=== PATIENT | male | born 1945 | race Caucasian/White ===

== ENCOUNTER 2018-10-27 18:38 | Inpatient (IN) | payer MEDICARE, MEDICAID ==
[2018-10-27] MEDS ORDERED: ACETAMINOPHEN 325 MG TAB PO ×2 (19:00→22:08)
[2018-10-27] MEDS ORDERED: LACTULOSE 30ML CUP PO (19:00)
[2018-10-27] MEDS ORDERED: PENDING SANTYL ORDER FOR WOUND CARE XX (19:00)
[2018-10-27] MEDS ORDERED: BISACODYL 10 MG SUPP PR (19:00)
[2018-10-27] MEDS ORDERED: DOCUSATE SODIUM 100 MG CAP PO (21:00)
[2018-10-27] MEDS ORDERED: HYDROCODONE/APAP (5/325) TAB PO (22:08)
[2018-10-27] MEDS ORDERED: NALOXONE (0.4 MG/ML) INJ IV (22:08)
[2018-10-27] MEDS ORDERED: NACL 0.9% 3 ML SYG IV (22:08)
[2018-10-27] MEDS ORDERED: ONDANSETRON 4 MG INJ IV (22:08)
[2018-10-27] MEDS ORDERED: morphine 4 MG/ML VIAL IV (22:08)
[2018-10-27] MEDS: MAGNESIUM HYDROXIDE 30ML CUP PO (22:42)
[2018-10-27] MEDS: morphine SULFATE/PF (2 MG/2 ML) SYG IV (22:43)
[2018-10-27] MEDS: SENNA TAB PO (22:43)
[2018-10-28 01:05] LABS: ADD UMIC NO; UR ASCORBIC ACID NEGATIVE (NEGATIVE); UR BILIRUBIN (Dip) NEGATIVE (NEGATIVE); UR BLOOD (Dip) NEGATIVE (NEGATIVE); UR CLARITY CLEAR (CLEAR); UR COLOR YELLOW (YELLOW); UR GLUCOSE (Dip) NEGATIVE (NEGATIVE); UR KETONES (Dip) NEGATIVE (NEGATIVE); UR LEUKOCYTE ESTERASE (Dip) NEGATIVE Leu/ul (NEGATIVE); UR NITRITE (Dip) NEGATIVE (NEGATIVE); UR SPECIFIC GRAVITY (Dip) 1.011 (1.003-1.030); UR TOTAL PROTEIN (Dip) NEGATIVE (NEGATIVE); UR UROBILINOGEN (Dip) 1+ mg/dL (NEGATIVE)
[2018-10-28] MEDS: PANTOPRAZOLE (EC) 40 MG TAB PO (06:32)
[2018-10-28 07:39] LABS: ADD MAN DIFF? NO
[2018-10-28 07:45] LABS: BASOPHILS % 0.4 % (0.0-2.0); EOSINOPHILS # 0.2 10^3/ul (0.0-0.5); EOSINOPHILS % 4.9 % (0.0-7.0); HEMATOCRIT 25.4 % (42.0-52.0); HEMOGLOBIN 8.2 g/dl (14.0-18.0); LYMPHOCYTES % 19.8 % (15.0-51.0); MEAN CORPUSCULAR HEMOGLOBIN 33.7 pg (29.0-33.0); MEAN CORPUSCULAR HGB CONC 32.3 g/dl (32.0-37.0); MEAN CORPUSCULAR VOLUME 104.5 fl (82.0-101.0); MEAN PLATELET VOLUME 9.4 fl (7.4-10.4); MONOCYTE # 0.7 10^3/ul (0.3-0.9); MONOCYTES % 13.2 % (0.0-11.0); NEUTROPHIL # 2.9 10^3/ul (1.6-7.5); NEUTROPHILS % 59.3 % (39.0-77.0); PLATELET COUNT 279 10^3/UL (140-415); RED BLOOD COUNT 2.43 10^6/ul (4.70-6.10); RED CELL DISTRIBUTION WIDTH 13.3 % (11.5-14.5)
[2018-10-28 07:45] LABS: WHITE BLOOD COUNT 4.9 10^3/ul (4.8-10.8)
[2018-10-28] MEDS: morphine SULFATE/PF (2 MG/2 ML) SYG IV ×4 (08:05→22:55)
[2018-10-28] MEDS: AMIODARONE 200 MG TAB PO (08:05)
[2018-10-28] MEDS: DOCUSATE SODIUM 100 MG CAP PO ×2 (08:06→21:12)
[2018-10-28] MEDS: METOPROLOL (XL) 25 MG TAB PO ×2 (08:06→21:12)
[2018-10-28] MEDS: ENOXAPARIN 40 MG/0.4 ML SYG SC (08:07)
[2018-10-28 08:11] LABS: ALANINE AMINOTRANSFERASE 13 IU/L (13-69); ALBUMIN 3.1 g/dl (3.3-4.9); ALBUMIN/GLOBULIN RATIO 1.03; ALKALINE PHOSPHATASE 103 IU/L (42-121); ANION GAP 7 (5-13); ASPARTATE AMINO TRANSFERASE 30 IU/L (15-46); BILIRUBIN,INDIRECT 0.2 mg/dl (0-1.1); BILIRUBIN,TOTAL 0.2 mg/dl (0.2-1.3); BLOOD UREA NITROGEN 20 mg/dl (7-20); CALCIUM 9.6 mg/dl (8.4-10.2); CARBON DIOXIDE 29 mmol/L (21-31); CHLORIDE 103 mmol/L (97-110); CREATININE 1.18 mg/dl (0.61-1.24); GLUCOSE 103 mg/dl (70-220); SODIUM 139 mmol/L (135-144); TOTAL PROTEIN 6.1 g/dl (6.1-8.1)
[2018-10-28 08:14] LABS: POTASSIUM 4.1 mmol/L (3.5-5.1)
[2018-10-28] MEDS: BISACODYL (EC) 5 MG TAB PO (09:25)
[2018-10-28] MEDS: WARFARIN 5 MG TAB PO (17:14)
[2018-10-28] MEDS: CIPROFLOXACIN 500 MG TAB PO (17:14)
[2018-10-28] MEDS: ASCORBIC ACID 500 MG TAB PO (17:14)
[2018-10-28] MEDS: SENNA TAB PO (21:00)
[2018-10-28] MEDS ORDERED: CIPROFLOXACIN 500 MG TAB PO (22:12)
[2018-10-29] MEDS: CIPROFLOXACIN 500 MG TAB PO ×2 (06:11→17:47)
[2018-10-29] MEDS: PANTOPRAZOLE (EC) 40 MG TAB PO (06:11)
[2018-10-29] MEDS: morphine SULFATE/PF (2 MG/2 ML) SYG IV ×4 (07:03→21:08)
[2018-10-29 07:14] LABS: INR 1.01; PROTIME 13.4 Sec (11.9-14.9)
[2018-10-29] MEDS: MULTIVITAMINS/MINERALS TAB PO (10:21)
[2018-10-29] MEDS: FOLIC ACID 1 MG TAB PO (10:22)
[2018-10-29] MEDS: ZINC SULFATE 220 MG CAP PO (10:22)
[2018-10-29] MEDS: DOCUSATE SODIUM 100 MG CAP PO ×2 (10:22→21:07)
[2018-10-29] MEDS: AMIODARONE 200 MG TAB PO (10:22)
[2018-10-29] MEDS: METOPROLOL (XL) 25 MG TAB PO ×2 (10:23→21:00)
[2018-10-29] MEDS: OXYCODONE/ACETAMINOPHEN (10/325) TAB PO (12:42)
[2018-10-29] MEDS: ENOXAPARIN 40 MG/0.4 ML SYG SC (15:12)
[2018-10-29] MEDS: ASCORBIC ACID 500 MG TAB PO (17:47)
[2018-10-29] MEDS: WARFARIN 2.5 MG TAB PO (17:48)
[2018-10-29] MEDS: SENNA TAB PO (21:07)
[2018-10-29] MEDS: BALSAM PERU/CASTOR OIL 60 GM TUBE TOP (22:45)
[2018-10-30] MEDS: morphine 4 MG/ML VIAL IV ×5 (02:42→20:23)
[2018-10-30] MEDS: PANTOPRAZOLE (EC) 40 MG TAB PO (05:47)
[2018-10-30] MEDS: CIPROFLOXACIN 500 MG TAB PO ×2 (05:47→18:57)
[2018-10-30 07:01] LABS: INR 1.02; PROTIME 13.5 Sec (11.9-14.9); PT RATIO 1.1
[2018-10-30] MEDS: DOCUSATE SODIUM 100 MG CAP PO ×2 (08:59→20:48)
[2018-10-30] MEDS: ZINC SULFATE 220 MG CAP PO (09:00)
[2018-10-30] MEDS: AMIODARONE 200 MG TAB PO (09:00)
[2018-10-30] MEDS: FOLIC ACID 1 MG TAB PO (09:00)
[2018-10-30] MEDS: METOPROLOL (XL) 25 MG TAB PO ×2 (09:00→20:49)
[2018-10-30] MEDS: MULTIVITAMINS/MINERALS TAB PO (09:01)
[2018-10-30] MEDS: ENOXAPARIN 40 MG/0.4 ML SYG SC (09:05)
[2018-10-30] MEDS: BALSAM PERU/CASTOR OIL 60 GM TUBE TOP ×2 (09:05→20:49)
[2018-10-30] MEDS: OXYCODONE/ACETAMINOPHEN (10/325) TAB PO ×2 (13:23→18:58)
[2018-10-30] MEDS: ASCORBIC ACID 500 MG TAB PO (17:14)
[2018-10-30] MEDS: WARFARIN 5 MG TAB PO (18:57)
[2018-10-30] MEDS: SENNA TAB PO (20:48)
[2018-10-30] MEDS: morphine SULFATE/PF (2 MG/2 ML) SYG IV (23:27)
[2018-10-31] MEDS: OXYCODONE/ACETAMINOPHEN (10/325) TAB PO (03:51)
[2018-10-31] MEDS: CIPROFLOXACIN 500 MG TAB PO ×2 (07:06→17:00)
[2018-10-31] MEDS: PANTOPRAZOLE (EC) 40 MG TAB PO (07:06)
[2018-10-31] MEDS: morphine 4 MG/ML VIAL IV ×4 (07:27→17:12)
[2018-10-31] MEDS: BALSAM PERU/CASTOR OIL 60 GM TUBE TOP ×2 (08:17→20:22)
[2018-10-31] MEDS: DOCUSATE SODIUM 100 MG CAP PO ×2 (08:18→20:22)
[2018-10-31] MEDS: FOLIC ACID 1 MG TAB PO (08:18)
[2018-10-31] MEDS: MULTIVITAMINS/MINERALS TAB PO (08:18)
[2018-10-31] MEDS: AMIODARONE 200 MG TAB PO (08:22)
[2018-10-31] MEDS: METOPROLOL (XL) 25 MG TAB PO ×2 (09:00→20:22)
[2018-10-31] MEDS: ZINC SULFATE 220 MG CAP PO (10:05)
[2018-10-31] MEDS: ENOXAPARIN 40 MG/0.4 ML SYG SC (10:08)
[2018-10-31 10:43] LABS: INR 0.99; PROTIME 13.2 Sec (11.9-14.9)
[2018-10-31] MEDS: ASCORBIC ACID 500 MG TAB PO (17:01)
[2018-10-31] MEDS: WARFARIN 2.5 MG TAB PO (17:48)
[2018-10-31] MEDS: SENNA TAB PO (20:22)
[2018-11-01] MEDS: morphine 4 MG/ML VIAL IV ×7 (01:39→20:52)
[2018-11-01] MEDS: PANTOPRAZOLE (EC) 40 MG TAB PO (06:07)
[2018-11-01] MEDS: CIPROFLOXACIN 500 MG TAB PO ×2 (06:07→17:04)
[2018-11-01 07:23] LABS: ADD MAN DIFF? NO
[2018-11-01 07:26] LABS: BASOPHILS % 0.8 % (0.0-2.0); EOSINOPHILS # 0.2 10^3/ul (0.0-0.5); EOSINOPHILS % 3.4 % (0.0-7.0); HEMATOCRIT 24.3 % (42.0-52.0); HEMOGLOBIN 7.9 g/dl (14.0-18.0); LYMPHOCYTES # 1.2 10^3/ul (0.8-2.9); LYMPHOCYTES % 23.5 % (15.0-51.0); MEAN CORPUSCULAR HEMOGLOBIN 34.6 pg (29.0-33.0); MEAN CORPUSCULAR HGB CONC 32.5 g/dl (32.0-37.0); MEAN CORPUSCULAR VOLUME 106.6 fl (82.0-101.0); MEAN PLATELET VOLUME 9.5 fl (7.4-10.4); MONOCYTE # 0.9 10^3/ul (0.3-0.9); MONOCYTES % 17.1 % (0.0-11.0); NEUTROPHIL # 2.7 10^3/ul (1.6-7.5); NEUTROPHILS % 53.8 % (39.0-77.0); PLATELET COUNT 286 10^3/UL (140-415); RED BLOOD COUNT 2.28 10^6/ul (4.70-6.10); RED CELL DISTRIBUTION WIDTH 13.2 % (11.5-14.5)
[2018-11-01 07:48] LABS: INR 1.04; PROTIME 13.7 Sec (11.9-14.9); PT RATIO 1.1
[2018-11-01 07:59] LABS: ANION GAP 7 (5-13); BLOOD UREA NITROGEN 25 mg/dl (7-20); CALCIUM 9.2 mg/dl (8.4-10.2); CARBON DIOXIDE 28 mmol/L (21-31); CHLORIDE 104 mmol/L (97-110); CREATININE 1.31 mg/dl (0.61-1.24); GLUCOSE 108 mg/dl (70-220); MAGNESIUM 1.9 mg/dl (1.7-2.5); PHOSPHORUS 3.8 mg/dl (2.5-4.9); POTASSIUM 4.1 mmol/L (3.5-5.1); SODIUM 139 mmol/L (135-144)
[2018-11-01] MEDS: METOPROLOL (XL) 25 MG TAB PO ×2 (08:16→21:00)
[2018-11-01] MEDS: ZINC SULFATE 220 MG CAP PO (08:16)
[2018-11-01] MEDS: MULTIVITAMINS/MINERALS TAB PO (08:16)
[2018-11-01] MEDS: AMIODARONE 200 MG TAB PO (08:16)
[2018-11-01] MEDS: FOLIC ACID 1 MG TAB PO (08:16)
[2018-11-01] MEDS: DOCUSATE SODIUM 100 MG CAP PO ×2 (08:16→20:44)
[2018-11-01] MEDS: BALSAM PERU/CASTOR OIL 60 GM TUBE TOP ×2 (08:17→20:45)
[2018-11-01] MEDS: ENOXAPARIN 40 MG/0.4 ML SYG SC (08:18)
[2018-11-01] MEDS: ASCORBIC ACID 500 MG TAB PO (17:04)
[2018-11-01] MEDS: WARFARIN 2.5 MG TAB PO (17:23)
[2018-11-01] MEDS: SENNA TAB PO (20:44)
[2018-11-02] MEDS: morphine 4 MG/ML VIAL IV (00:35)
[2018-11-02] MEDS: PANTOPRAZOLE (EC) 40 MG TAB PO (06:17)
[2018-11-02] MEDS: CIPROFLOXACIN 500 MG TAB PO ×3 (06:17→21:04)
[2018-11-02 07:46] LABS: INR 1.04; PROTIME 13.7 Sec (11.9-14.9); PT RATIO 1.1
[2018-11-02] MEDS: METOPROLOL (XL) 25 MG TAB PO ×2 (09:00→21:00)
[2018-11-02] MEDS: MULTIVITAMINS/MINERALS TAB PO (09:00)
[2018-11-02] MEDS: ENOXAPARIN 40 MG/0.4 ML SYG SC (09:00)
[2018-11-02] MEDS: FOLIC ACID 1 MG TAB PO (09:00)
[2018-11-02] MEDS: AMIODARONE 200 MG TAB PO (09:00)
[2018-11-02] MEDS: DOCUSATE SODIUM 100 MG CAP PO ×2 (09:00→21:05)
[2018-11-02] MEDS: ZINC SULFATE 220 MG CAP PO (09:00)
[2018-11-02] MEDS: BALSAM PERU/CASTOR OIL 60 GM TUBE TOP ×2 (09:00→21:05)
[2018-11-02] MEDS ORDERED: OXYCODONE/ACETAMINOPHEN (5/325) TAB PO (13:00)
[2018-11-02] MEDS: WARFARIN 5 MG TAB PO ×2 (17:00→21:17)
[2018-11-02] MEDS: ASCORBIC ACID 500 MG TAB PO (17:35)
[2018-11-02] MEDS: SENNA TAB PO (21:05)
[2018-11-02] MEDS: OXYCODONE/ACETAMINOPHEN (10/325) TAB PO (21:24)
[2018-11-03] MEDS: OXYCODONE/ACETAMINOPHEN (10/325) TAB PO (02:15)
[2018-11-03] MEDS: PANTOPRAZOLE (EC) 40 MG TAB PO (06:00)
[2018-11-03 08:57] LABS: ADD MAN DIFF? NO
[2018-11-03] MEDS: METOPROLOL (XL) 25 MG TAB PO ×2 (09:00→21:00)
[2018-11-03 09:07] LABS: WHITE BLOOD COUNT 4.3 10^3/ul (4.8-10.8)
[2018-11-03 09:07] LABS: BASOPHILS % 0.9 % (0.0-2.0); EOSINOPHILS # 0.3 10^3/ul (0.0-0.5); EOSINOPHILS % 5.8 % (0.0-7.0); HEMOGLOBIN 7.9 g/dl (14.0-18.0); LYMPHOCYTES # 0.8 10^3/ul (0.8-2.9); LYMPHOCYTES % 18.5 % (15.0-51.0); MEAN CORPUSCULAR HEMOGLOBIN 34.2 pg (29.0-33.0); MEAN CORPUSCULAR HGB CONC 31.6 g/dl (32.0-37.0); MEAN CORPUSCULAR VOLUME 108.2 fl (82.0-101.0); MEAN PLATELET VOLUME 9.7 fl (7.4-10.4); MONOCYTE # 0.6 10^3/ul (0.3-0.9); MONOCYTES % 13.4 % (0.0-11.0); NEUTROPHIL # 2.6 10^3/ul (1.6-7.5); NEUTROPHILS % 60.7 % (39.0-77.0); PLATELET COUNT 251 10^3/UL (140-415); RED BLOOD COUNT 2.31 10^6/ul (4.70-6.10); RED CELL DISTRIBUTION WIDTH 12.8 % (11.5-14.5)
[2018-11-03 09:28] LABS: INR 1.14; PROTIME 14.7 Sec (11.9-14.9); PT RATIO 1.1
[2018-11-03] MEDS: NALOXONE (0.4 MG/ML) INJ IV (09:54)
[2018-11-03] MEDS: SOD CHLORIDE 0.9% 500 ML IV ×2 (09:54→14:03)
[2018-11-03 09:55] LABS: ANION GAP 5 (5-13); BLOOD UREA NITROGEN 24 mg/dl (7-20); CALCIUM 9.5 mg/dl (8.4-10.2); CARBON DIOXIDE 29 mmol/L (21-31); CHLORIDE 104 mmol/L (97-110); CREATININE 1.59 mg/dl (0.61-1.24); GLUCOSE 96 mg/dl (70-220); MAGNESIUM 1.9 mg/dl (1.7-2.5); PHOSPHORUS 4.6 mg/dl (2.5-4.9); POTASSIUM 4.1 mmol/L (3.5-5.1); SODIUM 138 mmol/L (135-144)
[2018-11-03] MEDS: DOCUSATE SODIUM 100 MG CAP PO ×2 (14:30→21:18)
[2018-11-03] MEDS: FOLIC ACID 1 MG TAB PO (14:30)
[2018-11-03] MEDS: MULTIVITAMINS/MINERALS TAB PO (14:30)
[2018-11-03] MEDS: AMIODARONE 200 MG TAB PO (14:40)
[2018-11-03] MEDS: BALSAM PERU/CASTOR OIL 60 GM TUBE TOP ×2 (14:41→21:19)
[2018-11-03] MEDS: ZINC SULFATE 220 MG CAP PO (14:49)
[2018-11-03] MEDS: ASCORBIC ACID 500 MG TAB PO (18:03)
[2018-11-03] MEDS: CIPROFLOXACIN 500 MG TAB PO (18:03)
[2018-11-03] MEDS: WARFARIN 2.5 MG TAB PO (21:18)
[2018-11-03] MEDS: SENNA TAB PO (21:18)
[2018-11-04] MEDS: CIPROFLOXACIN 500 MG TAB PO (06:16)
[2018-11-04 07:48] LABS: ALBUMIN 3.4 g/dl (3.3-4.9); ANION GAP 8 (5-13); BLOOD UREA NITROGEN 21 mg/dl (7-20); CARBON DIOXIDE 27 mmol/L (21-31); CHLORIDE 107 mmol/L (97-110); CREATININE 1.29 mg/dl (0.61-1.24); GLUCOSE 95 mg/dl (70-220); MAGNESIUM 1.9 mg/dl (1.7-2.5); PHOSPHORUS 4.1 mg/dl (2.5-4.9); POTASSIUM 4.4 mmol/L (3.5-5.1); SODIUM 142 mmol/L (135-144)
[2018-11-04] MEDS: METOPROLOL (XL) 25 MG TAB PO ×2 (09:00→20:33)
[2018-11-04] MEDS: ZINC SULFATE 220 MG CAP PO (10:21)
[2018-11-04] MEDS: FAMOTIDINE 20 MG TAB PO (10:21)
[2018-11-04] MEDS: MULTIVITAMINS/MINERALS TAB PO (10:21)
[2018-11-04] MEDS: FOLIC ACID 1 MG TAB PO (10:21)
[2018-11-04] MEDS: DOCUSATE SODIUM 100 MG CAP PO ×2 (10:22→20:33)
[2018-11-04] MEDS: AMIODARONE 200 MG TAB PO (10:22)
[2018-11-04] MEDS: BALSAM PERU/CASTOR OIL 60 GM TUBE TOP ×2 (10:23→20:35)
[2018-11-04] MEDS: HYDROCODONE/APAP (5/325) TAB PO ×2 (13:28→19:26)
[2018-11-04] MEDS: WARFARIN 5 MG TAB PO (17:41)
[2018-11-04] MEDS: ASCORBIC ACID 500 MG TAB PO (17:41)
[2018-11-04] MEDS: SENNA TAB PO (20:33)
[2018-11-05] MEDS: HYDROCODONE/APAP (5/325) TAB PO ×5 (04:21→22:29)
[2018-11-05 06:49] LABS: ADD MAN DIFF? NO
[2018-11-05 07:00] LABS: BASOPHILS % 0.7 % (0.0-2.0); EOSINOPHILS # 0.2 10^3/ul (0.0-0.5); HEMATOCRIT 25.1 % (42.0-52.0); HEMOGLOBIN 8.1 g/dl (14.0-18.0); LYMPHOCYTES # 1.1 10^3/ul (0.8-2.9); LYMPHOCYTES % 25.4 % (15.0-51.0); MEAN CORPUSCULAR HEMOGLOBIN 34.2 pg (29.0-33.0); MEAN CORPUSCULAR HGB CONC 32.3 g/dl (32.0-37.0); MEAN CORPUSCULAR VOLUME 105.9 fl (82.0-101.0); MEAN PLATELET VOLUME 9.5 fl (7.4-10.4); MONOCYTE # 0.6 10^3/ul (0.3-0.9); NEUTROPHIL # 2.5 10^3/ul (1.6-7.5); NEUTROPHILS % 56.2 % (39.0-77.0); PLATELET COUNT 229 10^3/UL (140-415); RED BLOOD COUNT 2.37 10^6/ul (4.70-6.10)
[2018-11-05 07:00] LABS: WHITE BLOOD COUNT 4.5 10^3/ul (4.8-10.8)
[2018-11-05 07:22] LABS: ANION GAP 10 (5-13); BLOOD UREA NITROGEN 20 mg/dl (7-20); CALCIUM 9.6 mg/dl (8.4-10.2); CARBON DIOXIDE 29 mmol/L (21-31); CHLORIDE 104 mmol/L (97-110); CREATININE 1.27 mg/dl (0.61-1.24); GLUCOSE 110 mg/dl (70-220); MAGNESIUM 1.7 mg/dl (1.7-2.5); PHOSPHORUS 3.4 mg/dl (2.5-4.9); POTASSIUM 3.7 mmol/L (3.5-5.1); SODIUM 143 mmol/L (135-144)
[2018-11-05] MEDS: BALSAM PERU/CASTOR OIL 60 GM TUBE TOP ×2 (09:00→21:00)
[2018-11-05] MEDS: MULTIVITAMINS/MINERALS TAB PO (12:48)
[2018-11-05] MEDS: FAMOTIDINE 20 MG TAB PO (12:48)
[2018-11-05] MEDS: METOPROLOL (XL) 25 MG TAB PO ×2 (12:49→21:29)
[2018-11-05] MEDS: ZINC SULFATE 220 MG CAP PO (12:49)
[2018-11-05] MEDS: DOCUSATE SODIUM 100 MG CAP PO ×2 (12:51→21:22)
[2018-11-05] MEDS: AMIODARONE 200 MG TAB PO (12:52)
[2018-11-05] MEDS: ASCORBIC ACID 500 MG TAB PO (17:59)
[2018-11-05] MEDS: FOLIC ACID 1 MG TAB PO (18:01)
[2018-11-05] MEDS: SENNA TAB PO (21:00)
[2018-11-05] MEDS: WARFARIN 2.5 MG TAB PO (21:25)
[2018-11-06] MEDS: HYDROCODONE/APAP (5/325) TAB PO ×6 (02:44→23:58)
[2018-11-06 07:17] LABS: INR 1.51; PROTIME 18.3 Sec (11.9-14.9); PT RATIO 1.4
[2018-11-06] MEDS: DOCUSATE SODIUM 100 MG CAP PO ×2 (09:28→19:58)
[2018-11-06] MEDS: FAMOTIDINE 20 MG TAB PO (09:28)
[2018-11-06] MEDS: METOPROLOL (XL) 25 MG TAB PO ×2 (09:28→21:00)
[2018-11-06] MEDS: MULTIVITAMINS/MINERALS TAB PO (09:28)
[2018-11-06] MEDS: BALSAM PERU/CASTOR OIL 60 GM TUBE TOP ×2 (09:29→20:00)
[2018-11-06] MEDS: ZINC SULFATE 220 MG CAP PO (09:29)
[2018-11-06] MEDS: AMIODARONE 200 MG TAB PO (09:29)
[2018-11-06] MEDS: FOLIC ACID 1 MG TAB PO (09:29)
[2018-11-06] MEDS: traMADol 50 MG TAB PO (13:34)
[2018-11-06] MEDS: WARFARIN 5 MG TAB PO (18:08)
[2018-11-06] MEDS: ASCORBIC ACID 500 MG TAB PO (18:08)
[2018-11-06] MEDS: SENNA TAB PO (19:58)
[2018-11-07] MEDS: HYDROCODONE/APAP (5/325) TAB PO ×2 (04:37→08:51)
[2018-11-07 07:01] LABS: INR 1.58; PT RATIO 1.5
[2018-11-07] MEDS: FOLIC ACID 1 MG TAB PO (08:50)
[2018-11-07] MEDS: ZINC SULFATE 220 MG CAP PO (08:50)
[2018-11-07] MEDS: DOCUSATE SODIUM 100 MG CAP PO ×2 (08:50→20:47)
[2018-11-07] MEDS: MULTIVITAMINS/MINERALS TAB PO (08:50)
[2018-11-07] MEDS: FAMOTIDINE 20 MG TAB PO (08:50)
[2018-11-07] MEDS: AMIODARONE 200 MG TAB PO (08:51)
[2018-11-07] MEDS: METOPROLOL (XL) 25 MG TAB PO ×2 (08:53→20:48)
[2018-11-07] MEDS: BALSAM PERU/CASTOR OIL 60 GM TUBE TOP ×2 (08:56→20:46)
[2018-11-07] MEDS: traMADol 50 MG TAB PO (13:04)
[2018-11-07] MEDS: OXYCODONE/ACETAMINOPHEN (5/325) TAB PO ×3 (15:15→23:24)
[2018-11-07] MEDS: ASCORBIC ACID 500 MG TAB PO (18:18)
[2018-11-07] MEDS: WARFARIN 2.5 MG TAB PO (19:20)
[2018-11-07] MEDS: SENNA TAB PO (20:47)
[2018-11-08] MEDS: OXYCODONE/ACETAMINOPHEN (5/325) TAB PO ×5 (03:28→19:53)
[2018-11-08 06:41] LABS: ANION GAP 12 (5-13); BLOOD UREA NITROGEN 20 mg/dl (7-20); CALCIUM 9.7 mg/dl (8.4-10.2); CARBON DIOXIDE 31 mmol/L (21-31); CHLORIDE 101 mmol/L (97-110); CREATININE 1.29 mg/dl (0.61-1.24); GLUCOSE 93 mg/dl (70-220); MAGNESIUM 1.6 mg/dl (1.7-2.5); PHOSPHORUS 4.1 mg/dl (2.5-4.9); POTASSIUM 4.5 mmol/L (3.5-5.1); SODIUM 144 mmol/L (135-144)
[2018-11-08] MEDS: MULTIVITAMINS/MINERALS TAB PO (08:46)
[2018-11-08] MEDS: ZINC SULFATE 220 MG CAP PO (08:46)
[2018-11-08] MEDS: FAMOTIDINE 20 MG TAB PO (08:46)
[2018-11-08] MEDS: MAGNESIUM OXIDE 400 MG TAB PO (08:46)
[2018-11-08] MEDS: DOCUSATE SODIUM 100 MG CAP PO ×2 (08:53→21:00)
[2018-11-08] MEDS: METOPROLOL (XL) 25 MG TAB PO ×2 (08:53→21:00)
[2018-11-08] MEDS: FOLIC ACID 1 MG TAB PO (08:54)
[2018-11-08] MEDS: AMIODARONE 200 MG TAB PO (08:54)
[2018-11-08] MEDS: BALSAM PERU/CASTOR OIL 60 GM TUBE TOP ×2 (11:51→21:00)
[2018-11-08] MEDS: WARFARIN 2.5 MG TAB PO (17:00)
[2018-11-08] MEDS: WARFARIN 5 MG TAB PO (17:47)
[2018-11-08] MEDS: ASCORBIC ACID 500 MG TAB PO (17:47)
[2018-11-08] MEDS: SENNA TAB PO (21:00)
[2018-11-09] MEDS: OXYCODONE/ACETAMINOPHEN (5/325) TAB PO ×5 (04:26→21:40)
[2018-11-09] MEDS: DOCUSATE SODIUM 100 MG CAP PO ×2 (08:47→20:37)
[2018-11-09] MEDS: ZINC SULFATE 220 MG CAP PO (08:47)
[2018-11-09] MEDS: METOPROLOL (XL) 25 MG TAB PO ×3 (08:48→20:38)
[2018-11-09] MEDS: FAMOTIDINE 20 MG TAB PO (08:48)
[2018-11-09] MEDS: MULTIVITAMINS/MINERALS TAB PO (08:48)
[2018-11-09] MEDS: FOLIC ACID 1 MG TAB PO (08:48)
[2018-11-09] MEDS: AMIODARONE 200 MG TAB PO (08:53)
[2018-11-09] MEDS: BALSAM PERU/CASTOR OIL 60 GM TUBE TOP ×2 (12:54→20:39)
[2018-11-09] MEDS: ASCORBIC ACID 500 MG TAB PO (17:26)
[2018-11-09] MEDS: WARFARIN 5 MG TAB PO (18:55)
[2018-11-09] MEDS: SENNA TAB PO (20:37)
[2018-11-10] MEDS: OXYCODONE/ACETAMINOPHEN (5/325) TAB PO ×6 (01:54→21:28)
[2018-11-10 06:59] LABS: INR 1.58; PT RATIO 1.5
[2018-11-10] MEDS: FOLIC ACID 1 MG TAB PO (09:00)
[2018-11-10] MEDS: METOPROLOL (XL) 25 MG TAB PO ×2 (09:00→21:26)
[2018-11-10] MEDS: FAMOTIDINE 20 MG TAB PO (09:05)
[2018-11-10] MEDS: ZINC SULFATE 220 MG CAP PO (09:05)
[2018-11-10] MEDS: AMIODARONE 200 MG TAB PO (09:05)
[2018-11-10] MEDS: MULTIVITAMINS/MINERALS TAB PO (09:06)
[2018-11-10] MEDS: DOCUSATE SODIUM 100 MG CAP PO ×2 (09:07→21:25)
[2018-11-10] MEDS: BALSAM PERU/CASTOR OIL 60 GM TUBE TOP ×2 (14:07→21:00)
[2018-11-10] MEDS: WARFARIN 5 MG TAB PO (17:01)
[2018-11-10] MEDS: ASCORBIC ACID 500 MG TAB PO (17:35)
[2018-11-10] MEDS: SENNA TAB PO (21:00)
[2018-11-11] MEDS: OXYCODONE/ACETAMINOPHEN (5/325) TAB PO ×5 (01:33→18:32)
[2018-11-11 07:38] LABS: INR 1.96; PROTIME 22.4 Sec (11.9-14.9); PT RATIO 1.8
[2018-11-11] MEDS: AMIODARONE 200 MG TAB PO (08:33)
[2018-11-11] MEDS: ZINC SULFATE 220 MG CAP PO (08:33)
[2018-11-11] MEDS: FAMOTIDINE 20 MG TAB PO (08:34)
[2018-11-11] MEDS: METOPROLOL (XL) 25 MG TAB PO ×2 (08:34→20:38)
[2018-11-11] MEDS: DOCUSATE SODIUM 100 MG CAP PO ×2 (08:34→20:41)
[2018-11-11] MEDS: FOLIC ACID 1 MG TAB PO (08:34)
[2018-11-11] MEDS: BALSAM PERU/CASTOR OIL 60 GM TUBE TOP ×2 (08:34→20:39)
[2018-11-11] MEDS: MULTIVITAMINS/MINERALS TAB PO (08:34)
[2018-11-11] MEDS: ASCORBIC ACID 500 MG TAB PO (17:36)
[2018-11-11] MEDS: WARFARIN 5 MG TAB PO (17:36)
[2018-11-11] MEDS: SENNA TAB PO (20:38)
[2018-11-11] MEDS: BISACODYL (EC) 5 MG TAB PO (20:41)
[2018-11-12] MEDS: OXYCODONE/ACETAMINOPHEN (5/325) TAB PO ×3 (03:29→13:25)
[2018-11-12 07:33] LABS: INR 1.88; PROTIME 21.7 Sec (11.9-14.9); PT RATIO 1.7
[2018-11-12] MEDS: FAMOTIDINE 20 MG TAB PO (08:18)
[2018-11-12] MEDS: DOCUSATE SODIUM 100 MG CAP PO (08:18)
[2018-11-12] MEDS: MULTIVITAMINS/MINERALS TAB PO (08:18)
[2018-11-12] MEDS: FOLIC ACID 1 MG TAB PO (08:19)
[2018-11-12] MEDS: ZINC SULFATE 220 MG CAP PO (08:19)
[2018-11-12] MEDS: METOPROLOL (XL) 25 MG TAB PO (08:22)
[2018-11-12] MEDS: AMIODARONE 200 MG TAB PO (08:22)
[2018-11-12] MEDS: BALSAM PERU/CASTOR OIL 60 GM TUBE TOP (08:28)
== END 2018-11-12 15:25 | disposition home health service (06) | DRG 560 ==
LOC: VRC 18:38
PROC: F07Z5ZZ Bed Mobility Treatment (ICD-10-PCS; principal; 2018-10-27)
PROC: F08Z2ZZ Grooming/Personal Hygiene Treatment (ICD-10-PCS; 2018-10-27)
DX: S72.002D Fracture of unspecified part of neck of left femur, subsequent encounter for closed fracture with routine healing (principal); I13.0 Hypertensive heart and chronic kidney disease with heart failure and stage 1 through stage 4 chronic kidney disease, or unspecified chronic kidney disease; I50.30 Unspecified diastolic (congestive) heart failure; N17.9 Acute kidney failure, unspecified; M62.82 Rhabdomyolysis; D62 Acute posthemorrhagic anemia; W18.30XD Fall on same level, unspecified, subsequent encounter; G89.11 Acute pain due to trauma; I10 Essential (primary) hypertension; I48.91 Unspecified atrial fibrillation; N18.9 Chronic kidney disease, unspecified; T24.001D Burn of unspecified degree of unspecified site of right lower limb, except ankle and foot, subsequent encounter; E83.42 Hypomagnesemia; I49.9 Cardiac arrhythmia, unspecified; F06.31 Mood disorder due to known physiological condition with depressive features; Z79.01 Long term (current) use of anticoagulants
CPT/HCPCS: 80048; 80053; 80069; 81003; 82962; 83735; 84100; 85025; 85610; 87081; 87086; 97110; 97112; 97116; 97150; 97163; 97167; 97530; 97535; 97542

== ENCOUNTER 2019-01-25 13:57 | Emergency (ER) | payer MEDICARE, MEDICAID ==
[2019-01-25 14:37] LABS: ADD MAN DIFF? NO
[2019-01-25 14:42] LABS: WHITE BLOOD COUNT 4.8 10^3/ul (4.8-10.8)
[2019-01-25 14:42] LABS: BASOPHILS % 0.8 % (0.0-2.0); EOSINOPHILS # 0.3 10^3/ul (0.0-0.5); EOSINOPHILS % 6.1 % (0.0-7.0); HEMATOCRIT 29.9 % (42.0-52.0); LYMPHOCYTES # 1.5 10^3/ul (0.8-2.9); LYMPHOCYTES % 30.9 % (15.0-51.0); MEAN CORPUSCULAR HEMOGLOBIN 32.3 pg (29.0-33.0); MEAN CORPUSCULAR HGB CONC 33.4 g/dl (32.0-37.0); MEAN CORPUSCULAR VOLUME 96.5 fl (82.0-101.0); MEAN PLATELET VOLUME 9.5 fl (7.4-10.4); MONOCYTE # 0.6 10^3/ul (0.3-0.9); MONOCYTES % 13.5 % (0.0-11.0); NEUTROPHIL # 2.3 10^3/ul (1.6-7.5); NEUTROPHILS % 48.1 % (39.0-77.0); PLATELET COUNT 131 10^3/UL (140-415); RED CELL DISTRIBUTION WIDTH 13.3 % (11.5-14.5)
[2019-01-25 15:02] LABS: ANION GAP 8 (5-13); BLOOD UREA NITROGEN 20 mg/dl (7-20); CALCIUM 10.1 mg/dl (8.4-10.2); CARBON DIOXIDE 27 mmol/L (21-31); CHLORIDE 108 mmol/L (97-110); CREATININE 1.25 mg/dl (0.61-1.24); GLUCOSE 126 mg/dl (70-220); POTASSIUM 3.4 mmol/L (3.5-5.1); SODIUM 143 mmol/L (135-144)
[2019-01-25 15:17] LABS: INR 1.13; PROTIME 14.6 Sec (11.9-14.9); PT RATIO 1.1
[2019-01-25] MEDS: HYDROCODONE/APAP (10/325) TAB PO (16:36)
[2019-01-25] MEDS: ONDANSETRON (ODT) 4 MG TAB ODT (16:36)
== END 2019-01-25 20:29 | disposition home or self-care (01) ==
LOC: E/R 20:29
DX: M25.552 Pain in left hip (principal); D69.6 Thrombocytopenia, unspecified; R51 Headache; Z79.82 Long term (current) use of aspirin; Z87.891 Personal history of nicotine dependence
CPT/HCPCS: 70450; 73510; 73630-LT; 80048; 85025; 85610; 85730; 99285-25